=== PATIENT | female | born 1985 | race American Indian/Alaskan Native ===

== ENCOUNTER 2021-08-07 15:26 | Emergency (ER) | payer SELFPAY ==
--- NOTE | 2021-08-07 17:32 | Emergency Department Report ---
ED General Adult HPI - General Chief complaint: High BP Stated complaint: HIGH BLOOD PRESSURE Time Seen by Provider: 08/07/21 17:11 Source: patient Mode of arrival: Ambulatory Limitations: No Limitations - History of Present Illness Initial comments: 34-year-old female with a history of elevated blood pressure readings presents to the hospital complaining of persistently elevated blood pressure reading today with head tension and sweaty palms and feet. Patient states she has had similar symptoms in the past with elevated blood pressure in the past. She used a family member's blood pressure machine to check her BP and it was 220/180. At the time patient was experiencing 9/10 headache. She denies blurry vision, chest pain, shortness of breath, focal weakness, or focal numbness. She took her mother's amlodipine 5 mg approximately 1 hour prior to arrival. Repeat BP in the ED showed improvement. Headache also improved and currently 4/10 in tensity. for last several months patient has had persistent elevated blood pressure with the lowest being 140/90. She has never follow-up with a primary care doctor or had an official diagnosis of hypertension. She smokes cigarettes daily, drinks alcohol on occasion, and denies cocaine/drug use. - Related Data Previous Rx's Medication Instructions Recorded Last Taken Type Cyclobenzaprine [Flexeril] 10 mg PO TID PRN #30 tablet 01/06/16 Unknown Rx Ibuprofen [Motrin] 600 mg PO Q8H PRN #50 tablet 01/06/16 Unknown Rx traMADoL [Ultram] 50 mg PO Q6HR PRN #20 tablet 01/06/16 Unknown Rx labetaloL [Labetalol 100mg TAB] 100 mg PO BID #60 tablet 08/07/21 Unknown Rx Allergies Allergy/AdvReac Type Severity Reaction Status Date / Time No Known Allergies Allergy Unverified 01/06/16 20:56 ED Review of Systems ROS: Stated complaint: HIGH BLOOD PRESSURE Other details as noted in HPI Comment: All other systems reviewed and negative ED Past Medical Hx - Past Medical History Previous Medical History?: Yes Hx Hypertension: Yes - Surgical History Past Surgical History?: No - Social History Smoking Status: Current Every Day Smoker Substance Use Type: None - Medications Home Medications: Home Medications Medication Instructions Recorded Confirmed Last Taken Type Cyclobenzaprine [Flexeril] 10 mg PO TID PRN #30 tablet 01/06/16 Unknown Rx Ibuprofen [Motrin] 600 mg PO Q8H PRN #50 tablet 01/06/16 Unknown Rx traMADoL [Ultram] 50 mg PO Q6HR PRN #20 tablet 01/06/16 Unknown Rx labetaloL [Labetalol 100mg TAB] 100 mg PO BID #60 tablet 08/07/21 Unknown Rx ED Physical Exam - General Limitations: No Limitations - Other Other exam information: General: No acute distress Head: Atraumatic Eyes: normal appearance, pupils equal reactive to light ENT: Moist mucous membranes Neck: Normal appearance, no midline tenderness Chest: Clear to auscultation bilaterally CV: Regular rate and rhythm Abdomen: Soft, normal bowel sounds, nontender, nondistended, no rebound or guarding Back: Normal inspection Extremity: Normal inspection, full range of motion Neuro: Alert O x 3, no facial asymmetry, speech clear, no gross motor sensory deficit, [id number] intact Psych: Appropriate behavior Skin: No rash ED Course Vital Signs 08/07/21 08/07/21 08/07/21 16:04 18:18 18:31 Temperature 99.6 F Pulse Rate 90 76 84 Respiratory 18 14 Rate Blood Pressure 172/105 Blood Pressure 180/103 183/99 [Right] O2 Sat by Pulse 100 100 Oximetry - Reevaluation(s) Reevaluation #1: 08/07/21 17:37 bp 192/113 labetolol ordered ED Medical Decision Making - Medical Decision Making 35-year-old female presents with persistently elevated blood pressure without a diagnosis of hypertension. Patient complains of persistent tension headache although improved with bp reduction. She was offered CAT scan of the head but denies stating she has had similar headaches in the past and denies additional/focal neuro symptoms at this time. Patient also denies other signs into hypertensive emergency. Patient has refused lab draw to evaluate patient's kidney status because she is afraid of needles and fears this will increase her blood pressure. I explained risk of kidney injury to the patient. She will be placed on a antihypertensive that has a low risk of adverse renal side effects. I expressed to her the importance of follow-up with the PMD and she will ultimately blood draw and medication optimization. She expresses understanding Patient also offered to stay in the ER after p.o. labetalol to see if her blood blood pressure trends downward and she get further improvement in her symptoms. I informed her that it can take at least 1 hour after taking the oral medication before blood pressure reduction. Patient declined the offer and prefers to receive the medication and prescription and go home without waiting for bp reduction. She did however receive a short period of observation to ensure no reaction after taking medication Critical Care Time: No Critical care attestation.: If time is entered above; I have spent that time in minutes in the direct care of this critically ill patient, excluding procedure time. ED Disposition Clinical Impression: Headache, Hypertension Disposition: 01 HOME / SELF CARE / HOMELESS Is pt being admited?: No Does the pt Need Aspirin: No Condition: Stable Instructions: Hypertension, Adult, [id number], Hypertension (ED) Additional Instructions: Take the medication as prescribed. Follow-up with your doctor or doctor/clinic provided. Please Return if symptoms worsen as indicated by your discharge instructions. Prescriptions: labetaloL [Labetalol 100mg TAB] 100 mg PO BID #60 tablet Referrals: MAGALIE SOTO MD [Staff Physician] - 3-5 Days [facility] [Provider Group] - 3-5 Days
[2021-08-07 18:32] VITALS: BP 183/99
== END 2021-08-07 18:35 | disposition home or self-care (01) ==
LOC: ED 15:26
DX: I10 Essential (primary) hypertension (principal); R51.9 Headache, unspecified; F17.200 Nicotine dependence, unspecified, uncomplicated; Z79.899 Other long term (current) drug therapy
CPT/HCPCS: 99282